=== PATIENT | male | born 1995 ===

== ENCOUNTER 2023-04-15 19:21 | Emergency (ER) | payer BC, SELFPAY ==
[2023-04-15 19:40] VITALS: BP 120/75; PULSE 91; RESP 18; TEMP 37.2; O2SAT 98; BMI 30.7
[2023-04-15 19:46] VITALS: RESP 18
[2023-04-15] MEDS: Fluorescein Sodium STRIP 1 STRIP EYE-BOTH (20:06)
[2023-04-15] MEDS: Tetracaine HCl/PF 0.5% Oph Sol 4 ML DROPS 1 DROP EYE-BOTH (20:06)
[2023-04-15] MEDS: Erythromycin Base 0.5% Oph Oin 1 GM TUBE 1 CM EYE-LEFT (23:03)
[2023-04-15] MEDS: valACYclovir HCL 1,000 MG TABLET 1000 MG PO (23:03)
--- NOTE | 2023-04-15 23:04 | PC.NURSE ---
pt medicated per MAR
--- NOTE | 2023-04-15 23:27 | ED.EYEPROB ---
HPI - Eye Problem General Chief complaint: Eye Problems Stated complaint: left eye red Time Seen by Provider: 04/15/23 22:56 Source: patient Mode of arrival: ambulatory Limitations: no limitations History of Present Illness HPI Narrative: Patient comes in complaining of 1 day of a vesicular rash in the border of the nose close to the eyelid. Patient states a bit uncomfortable, borderline itchy, patient states that his eye feels uncomfortable, burning, crusty. Denies any fever chills, no visual changes Related Data Previous Rx's Medication Instructions Recorded erythromycin 5 mg/gram (0.5 %) eye 1 appl ophthalmic (eye) DAILY #3.5 04/15/23 ointment grams valacyclovir 1 gram tablet 1,000 mg PO BID #14 tabs 04/15/23 Allergies Allergy/AdvReac Type Severity Reaction Status Date / Time No Known Allergies Allergy Verified 04/15/23 19:44 Review of Systems Review of Systems: Constitutional : No Weight loss, No Fever, No Chills, No Night Sweats, No Fatigue, No Malaise ENT/Mouth : No Hearing loss, No Ear Pain, No Nasal Congestion, No Sinus Pain, No Hoarseness, No sore throat, No Rhinorrhea, No Swallowing Difficulty Eyes: No Eye Pain, No Swelling, No Redness, No Foreign Body, No Discharge, No Vision Changes Cardiovascular : No Chest Pain, No SOB, No Dyspnea on Exertion, No Orthopnea, No Edema, No Palpitations Respiratory : No Cough, No Sputum, No Wheezing, No Smoke Exposure, No Dyspnea Gastrointestinal : No Nausea, No Vomiting, No Diarrhea, No Constipation, No abdominal Pain, No Hematochezia, No Melena Genitourinary : no irregular bleeding, No Dysuria, No Urinary Frequency, No Hematuria, No Urinary Incontinence, No Urgency, No Flank Pain, No Urinary Flow Changes, No Hesitancy Musculoskeletal : No joint pain, No Myalgias, No Joint Swelling Skin : Complaining of vesicular rash on the sternal border of the no Neuro : No Weakness, No Numbness, No Paresthesias, No Loss of Consciousness, No Dizziness, No Headache Psych : No Anxiety/Panic, No Depression, No SI/HI/AH/VH, No Social Issues, Heme/Lymph: No Bruising, No Bleeding,No Lymphadenopathy Endocrine : No Polyuria, No Polydipsia, No Temperature Intolerance PMFSH Social History Social History Smoked in Last 30 Days: No Use of substances other than those prescribed or required for medical reasons: No Advance Directives: No Advance Directives Information Provided: No Physical Exam Vital Signs: Vital Signs: Last Vital Signs Temp 98.9 F 04/15/23 19:40 Pulse 91 04/15/23 19:40 Resp 18 04/15/23 19:46 BP 120/75 04/15/23 19:40 Pulse Ox 98 04/15/23 19:40 O2 Del Method Room Air 04/15/23 19:40 BMI result Body Mass Index 30.7 Const: Other: Appearance: Alert. Oriented X3. No acute distress. Eyes: Pupils equal, round and reactive to light. Fluorescein stain test negative for any lesions, no dendrites visualized, no corneal lesions. I did is erythematous and has crusty discharge ENT: Pharynx normal. There is a vesicular rash on the border of the nose on the left side Neck: Normal inspection. Neck supple. No lymph nodes noted. No crepitus CVS: Normal heart rate and rhythm. Pulses normal. Normal S1 and S2 Respiratory: No respiratory distress. Breath sounds normal. No Wheezing. No rales Abdomen: Soft and nontender. No rigidity. No distention. Skin: Skin warm and dry. Normal skin color. Normal skin turgor. Extremities: No lower extremity edema. No Lacerations. No Rash Neuro: Oriented X 3. No motor deficit. No sensory deficit. Moving all extremities. No slurred speech. CN 2 through 12 grossly intact Psych: calm, cooperative, normal affect Medications Administered Discontinued Medications Generic Name Dose Route Start Last Admin Trade Name Willian PRN Reason Stop Dose Admin Erythromycin 1 cm 04/15/23 22:57 04/15/23 23:03 Erythromycin Base 0.5% Oph Oin 1 Gm Tube EYE-LEFT 04/15/23 22:58 1 cm ONCE ONE Administration Fluorescein Sodium 1 strip 04/15/23 20:03 04/15/23 20:06 Fluorescein Sodium Strip EYE-BOTH 04/15/23 20:04 1 strip ONCE ONE Administration Tetracaine HCl 1 drop 04/15/23 20:02 04/15/23 20:06 Tetracaine Hcl/Pf 0.5% Oph Rafaela 4 Ml Drops EYE-BOTH 04/15/23 20:03 1 drop ONCE ONE Administration Valacyclovir HCl 1,000 mg 04/15/23 22:57 04/15/23 23:03 Valacyclovir Hcl 1,000 Mg Tablet PO 04/15/23 22:58 1,000 mg ONCE ONE Administration Medical Decision Making Medical Decision Making MDM Narrative: -this is possibly herpes simplex infection. No eye lesions, no attack lesions, no vesicles on the nose. -patient has an abrasion on the nostril on the left side, this has been going for about a week, patient states he accidentally hurt himself, unrelated to today's rash. -patient was given 1 dose of valacyclovir and erythromycin ointment -patient instructed to follow-up with Ophthalmology and return to emergency room if there are any new or worsening symptoms. Discharge Plan Discharge Clinical Impression: Herpes dermatitis Patient Disposition: Home, Self-Care Instructions: Oral Herpes Simplex Virus Infections (ED) Additional Instructions: Please follow-up with your primary care physician tomorrow. If you have any worsening or new symptoms, please return to the emergency room or call 911 Prescriptions: New valacyclovir 1 gram tablet 1,000 mg PO BID Qty: 14 0RF erythromycin 5 mg/gram (0.5 %) ointment 1 appl ophthalmic (eye) DAILY Qty: 3.5 0RF Interventions: ED Discharge Assessment Last Done: 04/15/23 23:05 Discharge Date/Time: 04/15/23 23:05
== END 2023-04-15 23:05 | disposition home or self-care (01) ==
PROVIDERS: Emergency Provider Emergency Medicine
DX: L13.0 Dermatitis herpetiformis (principal); R21 Rash and other nonspecific skin eruption
CPT/HCPCS: 99283; 99284